=== PATIENT | male | born 1970 | race Caucasian/White ===

== ENCOUNTER 2016-12-21 13:09 | Emergency (ER) | payer SELFPAY ==
[~2016-12-21] VITALS: Ht 182.8 cm; Wt 81.6 kg
[~2016-12-21 13:09] MED LIST: CATAFLAM50 MG PO; HYDROCODONE BIT1 T11 PO; KEFLEX500 MG PO
[2016-12-21] MEDS ORDERED: CEPHALEXIN500 M1 PO (14:53)
== END 2016-12-21 15:36 | disposition home or self-care (01) ==
LOC: ED 13:09
DX: S81.011A Laceration without foreign body, right knee, initial encounter (principal); W29.3XXA Contact with powered garden and outdoor hand tools and machinery, initial encounter; Y93.89 Activity, other specified; Y92.89 Other specified places as the place of occurrence of the external cause; Y99.8 Other external cause status